=== PATIENT | male | born 1945 | race Caucasian/White ===

== ENCOUNTER 2019-04-06 15:29 | Emergency (ER) | payer MEDICARE, OTHER ==
[2019-04-06 15:53] VITALS: O2SAT 94
[2019-04-06] MEDS ORDERED: NORCO 7.5/325 MG TAB PO ONE (16:09)
--- NOTE | 2019-04-06 16:14 | ERPHSYRPT ---
- History of Present Illness Time Seen by Provider: 04/06/19 15:37 Source: patient Exam Limitations: no limitations Patient Subjective Stated Complaint: Stepping down off a step yesterday and overstepped and rolled above his right ankle Triage Nursing Assessment: Pt brought into the ER via a wheelchair, non weight bearing to right foot, ankle/foot swollen, bruised, vitals wnl, denies pain unless he steps on it Physician History: 73 old male presented in the ER with chief complaint of right ankle and foot pain since yesterday. Patient was stepping off while talking on the phone, missed a step and bent his ankle yesterday around 4 PM.he was able to get up and walk with border to severe intensity sharp pain which is progressively worsening associated with increased swelling of the ankle until this afternoon and now he can hardly put any weight on her right/ankle. He is still able to move his toes without any limitation. pain is much better with resting. He also has an abrasion on the medial malleoli area but no bleeding.denies injury anywhere else Method of Injury: fell Occurred: yesterday Severity of Pain-Max: severe Severity of Pain-Current: severe Lower Extremities Pain: foot: right, ankle: right Modifying Factors: Improves With: immobilization, movement, rest Associated Symptoms: No snapping sensation, No popping sensation Allergies/Adverse Reactions: No Known Drug Allergies Allergy (Verified 04/06/19 15:53) - Review of Systems Constitutional: No Symptoms Eyes: No Symptoms Ears, Nose, & Throat: No Symptoms Respiratory: No Symptoms Cardiac: No Symptoms Abdominal/Gastrointestinal: No Symptoms Musculoskeletal: Fall, Injury, Joint Pain, Joint Swelling Skin: No Symptoms, Skin Lesions Neurological: No Symptoms Psychological: No Symptoms Endocrine: No Symptoms Hematologic/Lymphatic: No Symptoms - Past Medical History Pertinent Past Medical History: Yes Cardiac History: Hypertension Endocrine Medical History: Hypothyroidism - Past Surgical History Past Surgical History: Yes Musculoskeletal: Joint Replacement, Orthopedic Surgery - Social History Smoking Status: Never smoker Exposure to second hand smoke: No Drug Use: none Patient Lives Alone: Yes - Nursing Vital Signs Nursing Vital Signs: Initial Vital Signs Temperature 97.6 F 04/06/19 15:41 Pulse Rate 86 04/06/19 15:41 Blood Pressure 146/89 04/06/19 15:41 O2 Sat by Pulse Oximetry 94 L 04/06/19 15:41 Pain Scale Pain Intensity 6 - Physical Exam General Appearance: no apparent distress Eyes, Ears, Nose, Throat Exam: normal ENT inspection Neck Exam: normal inspection Cardiovascular/Respiratory Exam: chest non-tender, regular rate/rhythm Gastrointestinal/Abdominal Exam: soft Back Exam: normal inspection, normal range of motion Hips Exam: bilateral: non-tender Legs Exam: bilateral leg: non-tender Ankle Exam: right ankle: abrasions/laceration (superficial skin abrasion medial malleolar area), bone tenderness, limited range of motion, pain, soft tissue tenderness, swelling, left ankle: non-tender, normal inspection, normal range of motion, no evidence of injury Foot Exam: right foot: soft tissue tenderness, swelling, left foot: non-tender, normal inspection, normal range of motion Neuro/Tendon Exam: normal sensation Mental Status Exam: alert, oriented x 3 Skin Exam: normal color, warm SpO2: 94 O2 Delivery: Room Air Procedures - Splinting Location of Splint: Ankle, Lower Leg Type of Splint: Other (sugar tong and posterior splint) Splint Applied By: ED Nurse Pre-Proc Neuro Vasc Exam: normal Post-Proc Neuro Vasc Exam: neurovascular intact Progress: patient tolerated procedure very well - Course Nursing assessment & vital signs reviewed: Yes Ordered Tests: Active Orders 24 hr Category Date Time Status ANKLE (3 VIEWS) Stat Exams 04/06/19 16:07 Taken FOOT (MINIMUM 3 VIEWS) Stat Exams 04/06/19 16:08 Taken LOWER LEG Stat Exams 04/06/19 17:05 Taken Medication Summary Discontinued Medications Generic Name Dose Route Start Last Admin Trade Name Sirena PRN Reason Stop Dose Admin Hydrocodone Bitart/Acetaminophen 1 tab 04/06/19 16:09 04/06/19 16:31 Romney 7.5/325 Mg Tab PO 04/06/19 16:10 Not Given STAT ONE Oxycodone/Acetaminophen 1 tab 04/06/19 16:16 04/06/19 16:17 Percocet Tablet 5/325mg PO 04/06/19 16:17 1 tab STAT ONE Administration Oxycodone/Acetaminophen Confirm 04/06/19 16:16 Percocet Tablet 5/325mg Administered 04/06/19 16:17 Dose 1 tab .ROUTE .STK-MED ONE - Progress Progress: unchanged, improved, re-examined Progress Note: has fracture middle to distal third of the fibula with mild lateral displacement at the ankle joint.given Romney here. Placed in a posterior and sugar tong splint. Crutches/walker, no weight bearing, outpatient orthopedic surgery follow up for reevaluation as he might need fixation.. Discussed signs and symptoms of worsening return to ER which he seems understanding 04/06/19 17:11 04/06/19 17:51 Counseled pt/family regarding: diagnosis, need for follow-up, rad results - Departure Departure Disposition: Home Clinical Impression: Fracture, fibula closed, shaft Qualifiers: Encounter type: initial encounter Fracture morphology: segmental Fracture alignment: displaced Laterality: right Qualified Code(s): S82.461A - Displaced segmental fracture of shaft of right fibula, initial encounter for closed fracture Condition: Stable Critical Care Time: No Referrals: SHAVON NUNES, [facility] [Primary Care Provider] - Instructions: Ankle Fracture (DC), Fibula Fracture (DC) Additional Instructions: all weight-bearing. Take pain medications as needed. followup with orthopedic surgery for reevaluation. Return to ER for any worsening. Call [facility] for clinic date [phone] for walk-in appointment on Monday. Prescriptions: Hydrocodone Bit/Acetaminophen [Romney 7.5-325 Tablet] 1 each PO Q6HPRN PRN #14 tablet PRN Reason: Severe Pain
[2019-04-06] MEDS ORDERED: PERCOCET TABLET 5/325MG PO ONE (16:16)
[2019-04-06] MEDS ORDERED: PERCOCET TABLET 5/325MG ONE (16:16)
[2019-04-06] MEDS ORDERED: ZOFRAN ODT 4 MG ONE (18:27)
[2019-04-06] MEDS ORDERED: ZOFRAN ODT 4 MG PO ONE (18:29)
[2019-04-06 18:44] VITALS: BP 133/69; PULSE 84
--- NOTE | 2019-04-06 21:43 | XRAY ---
Indication: Pain following injury. Comparison: None 3 views of the right ankle demonstrates minimally displaced oblique fracture involving the distal shaft of the fibula with a nondisplaced hairline fracture just proximally. Soft tissue swelling and tiny heel spurs. Remaining ankle unremarkable. Comment: Preliminary interpretation was made by [facility]. No discrepancy.
--- NOTE | 2019-04-06 21:45 | XRAY ---
Indication: Pain following injury. Comparison: None 3 nonweightbearing views of the right foot demonstrates fibula shaft fracture reported separately. Tiny heel spurs. Remaining foot unremarkable.
--- NOTE | 2019-04-06 21:47 | XRAY ---
Indication: Pain following injury. Comparison: None 2 views of the right lower leg demonstrates minimally displaced oblique fracture distal shaft of the fibula with a nondisplaced hairline fracture just proximally and soft tissue swelling. No other bony, articular, or soft tissue abnormalities.
== END 2019-04-06 18:53 | disposition home or self-care (01) ==
LOC: ED 15:29
DX: S82.461A Displaced segmental fracture of shaft of right fibula, initial encounter for closed fracture (principal); X50.1XXA Overexertion from prolonged static or awkward postures, initial encounter; Y93.89 Activity, other specified; Y92.89 Other specified places as the place of occurrence of the external cause
CPT/HCPCS: 29505; 73590; 73610; 73630; 99284; Q0162; A9270-GY